=== PATIENT | male | born 2005 | race Caucasian/White ===

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

== ENCOUNTER 2024-04-27 01:31 | Emergency (ER) | payer MEDICAID, SELFPAY ==
--- NOTE | 2024-04-27 01:38 | HMH.EDGENADL ---
Discharge Plan Disposition Patient Disposition: Home, Self-Care Prescriptions Prescriptions: New amoxicillin-pot clavulanate 875-125 mg tablet 1 tab PO BID 7 Days Qty: 14 0RF Activity Restrictions/Add. Instructions Additional Instructions/Restrictions: Please see dentist as soon as possible. Please take Tylenol and ibuprofen as needed for pain. Please take antibiotics as prescribed. Clinical Impressions Clinical Impression: Acute pulpitis Print Language Print Language: Slovak Discharge ED Provider: Jose Guadalupe Dorado General Adult HPI General Chief complaint: Dental/Oral Stated complaint: constipation and tooth pain Time Seen by Provider: 04/27/24 01:38 History of Present Illness HPI narrative: 19-year-old male without significant past medical history presents for right mandibular tooth pain. He reports that he had some impacted molars extracted recently and he thinks that one of his normal teeth got cracked during the extraction process. It has been causing him pain but it got worse recently. He denies any fever or drainage. He has not been able to see a dentist about this yet. Related Data Previous Rx's ?Medication ?Instructions ?Recorded amoxicillin 875 mg-potassium 1 tab PO BID 7 days #14 tabs 04/27/24 clavulanate 125 mg tablet Allergies Allergy/AdvReac Type Severity Reaction Status Date / Time No Known Allergies Allergy Verified 04/27/24 01:42 [facility] Disclaimer: The information contained in this section may have been updated after the patient was seen, as this information can be updated by other users. Social History Smoking Status: Unknown if ever smoked alcohol intake: never current occupational status: employed Travel in the last 8 weeks: None ROS Obtained: Yes All systems reviewed & no additional complaints except as documented Physical Exam General General appearance: alert and in no apparent distress Head Head exam: atraumatic and normocephalic Eye Eye exam: Present normal appearance, PERRL and EOMI ENT ENT exam: Present normal oropharynx, normal external ear exam and other (Dental caries noted, possible chronic dental fracture of a right mandibular premolar) Neck Neck exam: Present normal inspection and full ROM Chest Chest inspection: Present normal inspection and symmetric chest wall rise; Absent tenderness Respiratory Respiratory exam: Present normal lung sounds bilaterally; Absent respiratory distress Cardiovascular Cardiovascular exam: Present regular rate and normal rhythm Abdominal Exam Abdominal exam: Present soft; Absent distention, tenderness or guarding Extremities Exam Extremities exam: Present normal inspection; Absent edema or joint swelling Back Exam Back exam: Present normal inspection; Absent tenderness Neurological Exam Neurological exam: Present alert and oriented X3; Absent motor sensory deficit Psychiatric Psychiatric exam: Present normal affect and normal mood Skin Skin exam: Present warm, dry and normal color Lymphatic Lymphatic Findings: no adenopathy Medical Decision Making Medical Records Medical records reviewed: Yes I reviewed the patient's medical records. Amaury Inquiry Pt receiving controlled substance: No Amaury was queried for this patient: No Vital Signs: 04/27/24 01:42 04/27/24 02:04 Temperature 98.2 F 98.2 F Temperature Source Oral Oral Pulse Rate 89 Pulse Rate [Right Brachial] 89 Respiratory Rate 16 16 Blood Pressure 145/95 H Blood Pressure [Right Arm] 145/95 H Blood Pressure Mean [Right Arm] 111 Blood Pressure Source Automatic Cuff Blood Pressure Source [Right Arm] Automatic Cuff Blood Pressure Position Sitting Blood Pressure Position [Right Arm] Sitting 02 Sat by Pulse Oximetry 98 Oxygen Delivery Method Room Air Room Air Lab Data Lab results reviewed: Yes I reviewed the patient's lab results. Orders (Tests/Meds): ED MEDICATIONS Discontinued Medications Generic Name Dose Route Start Last Admin Trade Name Freq PRN Reason Stop Dose Admin Amoxicillin/Clavulanate Potassium 1 each 04/27/24 01:41 04/27/24 01:49 Amoxicillin/Clavulanate Potassium 875/125mg Tablet PO 04/27/24 01:42 1 each ONCE ONE Administration Medical Decision Narrative: 19-year-old male without significant past medical history presents with right mandibular dental pain for the last couple of weeks.. History was obtained via interactive discussion with patient. On arrival, patient is [afebrile, hemodynamically stable, satting appropriately, alert, oriented x4, GCS 15], moving all extremities spontaneously. Full physical exam performed and significant for findings as document above, no evidence of abscess Differential includes but is not limited to pulpitis, dental fracture, abscess, deep space infection. Patient was given Augmentin for treatment of dental infection. He was offered a dental block but declined. He was discharged with prescription for Augmentin and instructed to follow-up with dentistry as soon as possible. Procedures Risk/Benefits of Procedure(s) Were Explained: Yes Critical Care Critical Care Time Critical Care Time: No
[2024-04-27 01:42] VITALS: BP 145/95; PULSE 89; RESP 16; TEMP 36.8; O2SAT 98; BMI 51.7
[2024-04-27] MEDS: AMOXICILLIN/CLAVULANATE POTASSIUM 875/125MG TABLET 1 EACH PO (01:49)
[2024-04-27 02:04] VITALS: BP 145/95; PULSE 89; RESP 16; TEMP 36.8; O2SAT 98
== END 2024-04-27 02:06 | disposition home or self-care (01) ==
PROVIDERS: Emergency Provider Emergency Medicine
DX: K04.01 Reversible pulpitis (principal)
CPT/HCPCS: 99283

== ENCOUNTER 2024-04-27 07:06 | Emergency (ER) | payer MEDICAID, SELFPAY ==
[2024-04-27 07:14] VITALS: BP 148/73; PULSE 64; RESP 16; TEMP 36.9; O2SAT 99; BMI 50.1
[2024-04-27] MEDS: TETRACAINE/BENZOCAINE/BUTAMBEN 56 GM SPRAY TP (07:20)
[2024-04-27] MEDS: LIDOCAINE 2% VISCOUS SOL 15ML UDC 15 ML PO (07:20)
--- NOTE | 2024-04-27 07:21 | HMH.EDGENADL ---
Discharge Plan Disposition Patient Disposition: Home, Self-Care Condition: Good Prescriptions Prescriptions: No Action albuterol sulfate 90 mcg/actuation HFA aerosol inhaler 2 puff INHALATION Q6H PRN (Reason: bronchitis) 7 Days Qty: 6.7 0RF Rx Instructions: administer with spacer Referrals Follow up/Referrals: Provider,Referral, [Primary Care Provider] - See instructions Activity Restrictions/Add. Instructions Additional Instructions/Restrictions: You were evaluated in the ER. Use the provided dental balls. Put 1 dental ball on the painful area. Leave this on for 1 hour then take it out and then take it off for at least an hour. Do not sleep or eat with these in place. Take the previously prescribed antibiotics as directed, do not skip doses, do not stop taking them early. Take Tylenol or ibuprofen if needed for pain, do not exceed the recommended doses on the bottle. Follow-up with your dentist today as scheduled. Return to the ER with new, worsening, or otherwise concerning symptoms. Clinical Impressions Clinical Impression: Dental caries, Toothache Print Language Print Language: German Discharge ED Provider: Tari Dumont General Adult HPI General Chief complaint: Dental/Oral Stated complaint: Pain on R side of mouth Time Seen by Provider: 04/27/24 07:15 Mode of Arrival: Ambulatory Source of Information: Patient Limitations: No Limitations Description of Symptoms (Recalled from ER Triage Doc. by RN): pt c/o R lower dental pain. pt states the pain is aching in nature and a 5/10. pt was here around 0100 and given an antibiotic, he denied a dental block at this time. pt reports the antibiotic has not helped at all with his pain. pt reports taking 650mg PO ASA with minimal relief. History of Present Illness HPI narrative: 19-year-old male presents to the ER for concerns of right lower dental pain. Patient states the pain is aching, approximately a 5 out of 10. He was here earlier this morning and prescribed an antibiotic but refused a dental block at that time. Patient reports the antibiotic has not helped his pain yet. He is back seeking additional pain control. Patient reports he is supposed to have an appointment with a dentist earlier today to have this tooth evaluated and pulled. Related Data Previous Rx's ?Medication ?Instructions ?Recorded albuterol sulfate 90 mcg/actuation 2 puff inhalation Q6H PRN 10/12/18 aerosol inhaler bronchitis 7 days #6.7 grams Allergies Allergy/AdvReac Type Severity Reaction Status Date / Time No Known Allergies Allergy Verified 04/27/24 07:22 [facility] Disclaimer: The information contained in this section may have been updated after the patient was seen, as this information can be updated by other users. Social History Smoking Status: Never smoker alcohol intake: never substance use type: denies use current occupational status: student Travel in the last 8 weeks: None household members: family housing: house ROS Obtained: Yes All systems reviewed & no additional complaints except as documented ENT Ears, Nose, Mouth, and Throat: Reports dental pain Physical Exam General General appearance: alert and in no apparent distress Head Head exam: atraumatic and normocephalic Eye Eye exam: Present PERRL and EOMI ENT ENT exam: Present mucous membranes moist and other (Poor dentition, multiple dental caries, right mandibular molar with obvious gingivitis at the base, no trismus, no sublingual or submandibular swelling, no abscess) Neck Neck exam: Present normal inspection and full ROM Chest Chest inspection: Present symmetric chest wall rise Respiratory Respiratory exam: Absent respiratory distress or stridor Cardiovascular Cardiovascular exam: Present regular rate and normal rhythm Abdominal Exam Abdominal exam: Present soft; Absent distention or tenderness Extremities Exam Extremities exam: Present full ROM Neurological Exam Neurological exam: Present alert and oriented X3; Absent motor sensory deficit Psychiatric Psychiatric exam: Present normal affect and normal mood Skin Skin exam: Present warm and dry Medical Decision Making Medical Records Medical records reviewed: Yes I reviewed the patient's medical records. Amaury Inquiry Pt receiving controlled substance: No Vital Signs: 04/27/24 07:14 04/27/24 07:26 Temperature 98.5 F 98.5 F Temperature Source Oral Pulse Rate 67 Pulse Rate [Left] 64 Respiratory Rate 16 16 Blood Pressure 148/73 H Blood Pressure [Right Arm] 148/73 H Blood Pressure Mean [Right Arm] 98 Blood Pressure Source [Right Arm] Automatic Cuff Blood Pressure Position [Right Arm] Sitting 02 Sat by Pulse Oximetry 99 Oxygen Delivery Method Room Air Orders (Tests/Meds): ED MEDICATIONS Discontinued Medications Generic Name Dose Route Start Last Admin Trade Name Freq PRN Reason Stop Dose Admin Lidocaine HCl 15 ml 04/27/24 07:19 Lidocaine 2% Viscous Leanne 15ml Udc PO 04/27/24 07:20 ONCE ONE Medical Decision Narrative: In summary, 19-year-old male was evaluated in the ER for dental pain. Patient was evaluated for the same a few hours prior. Exam is stable, he has findings of gingival inflammation, infection, dental caries, no abscess. I considered the possibility of Reg's angina however patient does not have any submandibular submental lingual swelling, no trismus, he is not having any difficulty tolerating secretions, no stridor. Patient reports he is supposed to have an appointment today to have his tooth pulled, they will likely be using local anesthetic and due to limitations on dosing, I do not want to preclude the patient from appropriate definitive management so I will not be performing a dental block at this time. Patient did not receive dental balls during his earlier visit to the ER so these were provided to the patient. Patient had also expected the antibiotics to already be working, so I educated him on the mechanism and effectivity of antibiotics. I encouraged him to continue taking the antibiotics. He was provided dental balls for continued home management and encouraged to keep the appointment today for the dentist for definitive management. He already has a prescription for Augmentin which I instructed him to continue using. Patient was given instructions on symptomatic management, follow up instructions, and return precautions for the emergency department. Patient indicated understanding and was discharged in stable condition. Critical Care Critical Care Time Critical Care Time: No
[2024-04-27 07:26] VITALS: BP 148/73; PULSE 67; RESP 16; TEMP 36.9
== END 2024-04-27 07:30 | disposition home or self-care (01) ==
PROVIDERS: Emergency Provider Emergency Medicine
DX: K02.9 Dental caries, unspecified (principal)
CPT/HCPCS: 99283

== ENCOUNTER 2024-08-02 10:39 | Emergency (ER) | payer MEDICAID, SELFPAY ==
[2024-08-02 10:50] VITALS: BP 113/76; PULSE 71; RESP 18; TEMP 36.7; O2SAT 99; BMI 44.9
[2024-08-02 10:58] LABS: Coronavirus 19, PCR Not Detected (NotDetected); Influenza A, PCR Not Detected (NotDetected); Influenza B, PCR Not Detected (NotDetected)
--- NOTE | 2024-08-02 11:04 | ED_ITS ---
Discharge Plan Disposition Patient Disposition: Home, Self-Care Condition: Good Prescriptions Prescriptions: New fluticasone propionate [Flonase Allergy Relief] 50 mcg/actuation spray,suspension 2 spray intranasal DAILY Qty: 16 0RF Rx Instructions: administer into each nostril daily amoxicillin 875 mg tablet 875 mg PO BID Qty: 20 0RF Referrals Follow up/Referrals: Provider,Referral, MD [Primary Care Provider] - See instructions Activity Restrictions/Add. Instructions Additional Instructions/Restrictions: Take medication as prescribed *Monitor Temp, Over the counter Motrin or Tylenol as directed/as needed Tylenol every 4 hours and Motrin every 6 hours (as long as your family doctor has told you that you can take it) for fever or pain. and straight to ER if unable to lower temp less than 101.0 after medication given Sleep elevated *Humidifier/Vaporizer *Flonase 2 sprays in each nostril daily but be aware that it may take 2-3 days before you notice improvement Follow up IMMEDIATELY for new or worsening symptoms or no Noticeable improvement over the next 48-72 hours. 911 for difficulty breathing or swallowing Clinical Impressions Clinical Impression: Otitis media Qualifiers: Otitis media type: unspecified Laterality: left Qualified Code(s): H66.92 - Otitis media, unspecified, left ear Instructions Patient Instructions: Middle Ear Infection, Amoxicillin Print Language Print Language: Romanian Discharge ED Provider: Kim Will [facility] [place] HPI General Stated complaint: headache, fever Mode of Arrival: Ambulatory Source of Information: Patient Limitations: No Limitations Time Seen by Provider: 08/02/24 11:04 Description of Symptoms (Recalled from Triage Doc. by RN): PATIENT C/O HEADACHE, FEELING HOT, DIZZINESS, AND BODY ACHES. PATIENT REQUESTING COVID TEST HEENT Symptoms (Recalled from RN notes): Yes Resp Symptoms (Recalled from RN notes): No Skin Symptoms (Recalled from RN notes): No MS Symptoms (Recalled from RN notes): No Functional Status (Recalled from RN notes): WNL History of Present Illness Provider Complaint: Patient states that he hasnt felt well for a couple of days states that he has been having headache, pain and pressure in his left ear, feeling dizzy at times, feeling hot and tired States he thinks he may have an ear infection but grandmother was worried he may have COVID again and wanted to get him tested Related Data Previous Rx's ?Medication ?Instructions ?Recorded amoxicillin 875 mg tablet 875 mg PO BID #20 tabs 08/02/24 fluticasone propionate 50 2 spray intranasal DAILY #16 grams 08/02/24 mcg/actuation nasal spray,suspension (Flonase Allergy Relief) Allergies Allergy/AdvReac Type Severity Reaction Status Date / Time No Known Allergies Allergy Verified 04/27/24 07:30 Worker's Comp Is this a Worker's Comp case?: No [facility] Disclaimer: The information contained in this section may have been updated after the patient was seen, as this information can be updated by other users. Medical History (Updated 08/02/24 @ 11:12 by Kim Will APRN) Depression Anxiety Surgical History (Updated 08/02/24 @ 11:05 by Karla Pettit RN) Hx of wisdom tooth extraction Social History (System 04/27/24 @ 07:30 by Odalis Freed) Smoking Status: Unknown if ever smoked alcohol intake: never substance use type: denies use current occupational status: employed and student Travel in the last 8 weeks: None household members: family housing: house ROS Obtained: Yes All systems reviewed & no additional complaints except as documented and Yes Systems reviewed as appropriate & no additional complaints except as documented Constitutional Constitutional: Reports system reviewed and no additional complaints, except as documented, Reports as per HPI, Reports body ache, Reports chills and Reports headache(s) ENT Ears, Nose, Mouth, and Throat: Reports system reviewed and no additional complaints, except as documented, Reports as per HPI, Reports otalgia, Reports headache(s), Reports nasal congestion and Reports nasal discharge Cardiovascular Cardiovascular: Reports system reviewed and no additional complaints, except as documented and Reports as per HPI Respiratory Respiratory: Reports system reviewed and no additional complaints, except as documented and Reports as per HPI Gastrointestinal Gastrointestingal: Reports system reviewed and no additional complaints, except as documented and as per HPI Musculoskeletal Musculoskeletal: Reports system reviewed and no additional complaints, except as documented and Reports as per HPI Neurologic Neurologic: Reports headache(s) Physical Exam General General appearance: alert and in no apparent distress ENT ENT exam: Present mucous membranes moist Expanded ENT Exam TM/Canal exam: Left TM: erythema and Bilateral TM: bulging Nose exam: Absent sinus tenderness Throat exam: Present normal inspection Chest Chest inspection: Present normal inspection and symmetric chest wall rise Respiratory Respiratory exam: Present normal lung sounds bilaterally; Absent respiratory distress or wheezes Cardiovascular Cardiovascular exam: Present regular rate, normal rhythm and normal heart sounds Abdominal Exam Abdominal exam: Present soft and normal bowel sounds; Absent distention or tenderness Neurological Exam Neurological exam: Present alert, oriented X3 and normal gait Medical Decision Making Medical Records Screening: Per USPSTF and CDC recommendations, given the prevalence of disease in our region, it is our hospital?s policy to screen for HIV and viral Hepatitis for all patients aged 18 and over and those with ongoing risk factors. Amaury Inquiry Pt receiving controlled substance: No Amaury was queried for this patient: No Vital Signs: 08/02/24 10:50 Temperature 98.1 F Temperature Source Oral Pulse Rate [Left Brachial] 71 Respiratory Rate 18 Blood Pressure [Left Arm] 113/76 Blood Pressure Mean [Left Arm] 88 Blood Pressure Source [Left Arm] Automatic Cuff Blood Pressure Position [Left Arm] Sitting 02 Sat by Pulse Oximetry 99 Oxygen Delivery Method Room Air Orders (Tests/Meds): ORDERS Category Date Time Status Rapid PCR Covid and Flu A/B Stat Lab 08/02/24 10:50 Received
[2024-08-02 11:10] VITALS: BP 113/76; PULSE 71; RESP 18; TEMP 36.7; O2SAT 99
== END 2024-08-02 11:14 | disposition home or self-care (01) ==
PROVIDERS: Emergency Provider Nurse Practitioner
DX: H66.92 Otitis media, unspecified, left ear (principal)
CPT/HCPCS: 87636; 99213; G0381

== ENCOUNTER 2024-09-07 09:46 | Emergency (ER) | payer MEDICAID, SELFPAY ==
[2024-09-07 10:05] VITALS: BP 128/67; PULSE 50; RESP 22; TEMP 36.9; O2SAT 98; BMI 47.0
--- NOTE | 2024-09-07 10:19 | XR_ITS ---
FINAL REPORT CLINICAL HISTORY: constipation and nausea COMPARISON: None FINDINGS: A single view of the abdomen was obtained. There is a nonobstructive bowel gas pattern. There is a moderate amount of retained stool. There are no abnormally dilated loops of small bowel. There are no abnormal calcifications. IMPRESSION: Nonobstructive bowel gas pattern with a moderate stool burden. Reviewed, Interpreted and Dictated by Geo Lopez III, MD Transcribed by Brittni Pedro Authenticated and [facility]
--- NOTE | 2024-09-07 10:34 | EXP.UTC ---
Discharge Plan Disposition Patient Disposition: Home, Self-Care Condition: Good Prescriptions Prescriptions: New polyethylene glycol 3350 [Miralax] 17 gram/dose powder 17 g PO DAILY PRN (Reason: constipation) Qty: 238 0RF ondansetron 4 mg tablet,disintegrating 4 mg PO Q8H PRN (Reason: nausea and vomiting) Qty: 10 0RF Referrals Follow up/Referrals: Provider,Referral, MD [Primary Care Provider] - See instructions Activity Restrictions/Add. Instructions Additional Instructions/Restrictions: Make sure to drink plently of fluids Drink the Mirlax daily at least for the next week to help with constipation and to get you cleaned out and regular Straight to ER if any worsening of vomiting, stomach pain or any life threatening symptoms Follow up with your Family Doctor if no improvement Clinical Impressions Clinical Impression: Nausea and vomiting Qualifiers: Vomiting type: unspecified Qualified Code(s): R11.2 - Nausea with vomiting, unspecified Stand Alone Forms Stand Alone Forms: Work/School Release Instructions Patient Instructions: DI for Constipation, Nausea and Vomiting-Adult Print Language Print Language: Dutch Discharge ED Provider: Kim Will [facility] General Stated complaint: vomiting and is constipated Mode of Arrival: Ambulatory Source of Information: Patient Limitations: No Limitations Time Seen by Provider: 09/07/24 10:34 Description of Symptoms (Recalled from Triage Doc. by RN): PATIENT C/O ABDOMINAL PAIN THAT STARTED LAST NIGHT APPROX 2100 AND VOMITING THAT STARTED THIS MORNING AT 0400. PATIENT ALSO STATES HE FEELS LIKE HE IS CONSTIPATED. PATIENT REPORTS LAST BOWEL MOVEMENT WAS YESTERDAY HEENT Symptoms (Recalled from RN notes): No Resp Symptoms (Recalled from RN notes): No Skin Symptoms (Recalled from RN notes): No MS Symptoms (Recalled from RN notes): No Functional Status (Recalled from RN notes): WNL History of Present Illness Provider Complaint: Patient states that he has a history of constipation, States he has been a little constipated but doesnt think the two are related, states that yesterday evening he started with crampy like pain in his abdomen and did have a bowel movement and it was normal then he started having some nausea and vomited several times States that he was up all night with N/V States that he is still having some nausea on and off States after getting to work he smelled the food and vomited several times and they made him come in Related Data Previous Rx's ?Medication ?Instructions ?Recorded ondansetron 4 mg disintegrating 4 mg PO Q8H PRN nausea and 09/07/24 tablet vomiting #10 tabs polyethylene glycol 3350 17 17 g PO DAILY PRN constipation 09/07/24 gram/dose oral powder (Miralax) #238 grams Allergies Allergy/AdvReac Type Severity Reaction Status Date / Time No Known Allergies Allergy Verified 04/27/24 07:30 Worker's Comp Is this a Worker's Comp case?: [facility] Disclaimer: The information contained in this section may have been updated after the patient was seen, as this information can be updated by other users. Medical History (Updated 09/07/24 @ 12:41 by Kim Will APRN) Depression Anxiety Surgical History (Updated 08/02/24 @ 11:05 by Karla Pettit RN) Hx of wisdom tooth extraction Social History (System 04/27/24 @ 07:30 by Odalis Freed) Smoking Status: Unknown if ever smoked alcohol intake: never substance use type: denies use current occupational status: employed and student Travel in the last 8 weeks: None household members: family housing: house ROS Obtained: Yes All systems reviewed & no additional complaints except as documented and Yes Systems reviewed as appropriate & no additional complaints except as documented Constitutional Constitutional: Reports system reviewed and no additional complaints, except as documented and Reports as per HPI ENT Ears, Nose, Mouth, and Throat: Reports system reviewed and no additional complaints, except as documented and Reports as per HPI Cardiovascular Cardiovascular: Reports system reviewed and no additional complaints, except as documented and Reports as per HPI Respiratory Respiratory: Reports system reviewed and no additional complaints, except as documented and Reports as per HPI Gastrointestinal Gastrointestingal: Reports system reviewed and no additional complaints, except as documented, as per HPI, constipation (has hx of constipation, last BM was yesterday and normal), cramping, nausea and vomiting; Denies diarrhea Physical Exam General General appearance: alert and in no apparent distress ENT ENT exam: Present normal exam, normal oropharynx, mucous membranes moist and TM's normal bilaterally Respiratory Respiratory exam: Present normal lung sounds bilaterally; Absent respiratory distress or wheezes Cardiovascular Cardiovascular exam: Present regular rate, normal rhythm and normal heart sounds Abdominal Exam Abdominal exam: Present soft and normal bowel sounds; Absent distention, tenderness, guarding or rebound Neurological Exam Neurological exam: Present alert, oriented X3 and normal gait Medical Decision Making Medical Records Screening: Per USPSTF and CDC recommendations, given the prevalence of disease in our region, it is our hospital?s policy to screen for HIV and viral Hepatitis for all patients aged 18 and over and those with ongoing risk factors. Amaury Inquiry Pt receiving controlled substance: No Amaury was queried for this patient: No Vital Signs: 09/07/24 10:05 Temperature 98.4 F Temperature Source Oral Pulse Rate [Left Brachial] 50 L Respiratory Rate 22 Blood Pressure [Left Arm] 128/67 Blood Pressure Mean [Left Arm] 87 Blood Pressure Source [Left Arm] Automatic Cuff Blood Pressure Position [Left Arm] Sitting 02 Sat by Pulse Oximetry 98 Oxygen Delivery Method Room Air Orders (Tests/Meds): ORDERS Category Date Time Status XR KUB Stat Exams 09/07/24 10:19 Taken Radiology Data #1: Image(s): KUB Image Reviewed: Yes I have reviewed radiologist's interpretation Nonobstructive bowel gas pattern with moderate stool burden Medical Decision Narrative: discussed with patient about transfer to the ED due to constipation with vomiting and he declined States that he thinks he may have a stomach bug so he wants to go home Patient was given strict return precautions to the ED no vomiting since arrival in the [facility]
[2024-09-07 12:42] VITALS: BP 128/67; PULSE 68; RESP 22; TEMP 36.9; O2SAT 98
== END 2024-09-07 12:44 | disposition home or self-care (01) ==
PROVIDERS: Emergency Provider Nurse Practitioner
DX: R11.2 Nausea with vomiting, unspecified (principal); R10.9 Unspecified abdominal pain; K59.00 Constipation, unspecified
CPT/HCPCS: 74018; 99212; G0381

== ENCOUNTER 2025-05-04 12:02 | Emergency (ER) | payer MEDICAID, SELFPAY ==
[2025-05-04 12:13] VITALS: BP 157/72; PULSE 96; RESP 17; TEMP 36.5; O2SAT 98; BMI 48.6
--- NOTE | 2025-05-04 12:13 | ED_ITS ---
<Statement entered by Buster Huertas DO - 05/06/25 15:27> Attending Attestation: I was consulted by the SUMAN, and we discussed the complexity of problems being addressed. I approved the treatment and management plan for this patient's care in the emergency department, thus performing a substantive portion of the medical decision making. I personally evaluated the patient. He described nausea and vomiting over the past couple of weeks with intermittent epigastric abdominal pain. He poorly describes temporality of his pain in relation to the nausea and vomiting. He voices concern over his grandfather's recent diagnosis of pancreatic cancer, and states he has been self medicating with marijuana for anxiety related to this. Given that his abdominal exam was totally benign without any tenderness, I felt advanced imaging was of low utility and elected to proceed with laboratory workup. I did feel his intermittent pain with nausea and vomiting could be secondary to gastritis vs. anxiety vs. cannabinoid hyperemesis syndrome. I personally tried to treat the patient with a GI cocktail and pepcid, and he declined these interventions. Was also uncomfortable with IV fluid rehydration, but he did ultimately agree to IV fluid bolus. Labs were personally interpreted and nonactionable. I advised the patient on cannabinioid hyperemesis as well as potential gastritis. Gave him recommendations for treating both at home given that he did not wish to recieve any prescriptions. We also discussed return precautions in the event he developed worse abdominal pain, intractable nausea and vomiting, or signs of dehydration. He acknowledged understanding and was amenable with plan to discharge home. Buster Huertas DO Discharge Plan Disposition Patient Disposition: Home, Self-Care Condition: Good Prescriptions Prescriptions: New ondansetron 4 mg tablet,disintegrating 4 mg PO Q6H PRN (Reason: nausea and vomiting) Qty: 10 0RF No Action polyethylene glycol 3350 [Miralax] 17 gram/dose powder 17 g PO DAILY PRN (Reason: constipation) Qty: 238 0RF ondansetron 4 mg tablet,disintegrating 4 mg PO Q8H PRN (Reason: nausea and vomiting) Qty: 10 0RF Referrals Follow up/Referrals: Provider,Referral, MD [Primary Care Provider, Medical] - See instructions Activity Restrictions/Add. Instructions Additional Instructions/Restrictions: Please return to the emergency department with any worsening signs or symptoms, please utilize all your medications as prescribed, take your antinausea medicine as needed for nausea and vomiting, recommend marijuana cessation, hot showers, follow-up with your family doctor in the upcoming days/weeks. Clinical Impressions Clinical Impression: Nausea and vomiting Qualifiers: Vomiting type: unspecified Qualified Code(s): R11.2 - Nausea with vomiting, unspecified Instructions Patient Instructions: DI for Nausea -- Adult, DI for Vomiting -- Adult Print Language Print Language: Italian Discharge ED Provider: Buster Huertas Adult HPI General Chief complaint: Abdominal Pain Stated complaint: stomach pain Time Seen by Provider: 05/04/25 12:11 Mode of Arrival: Ambulatory Source of Information: Patient Limitations: No Limitations History of Present Illness HPI narrative: 20-year-old male presents to the emergency department with a 2-week history of waxing and waning abdominal cramping, nausea and vomiting, several episodes of vomiting today which he was sent home from his job , he denies any fever chills chest pain, denies any shortness of breath, denies any abdominal pain currently, does have a history of constipation, did have multiple loose bowel movements this morning, was constipated earlier in the week, did have a bowel movement yesterday as well, patient denies any urinary type symptomatology, denies any hematuria hematochezia melena hematemesis, denies any tobacco alcohol, does admit to marijuana use earlier today and frequent marijuana use, initial triage vitals are unremarkable, patient has history of anxiety/depression, however does not take any medications for this. States he has been more anxious , lately, his grandfather got diagnosed with pancreatic cancer , which has worsened his anxiety. Please note that above description of symptoms, in this electronic medical record under categorization of recalled from ER triage doctor by RN are reflective of an initial nursing assessment, however, is not reflective of my full history and physical exam that was personally taken and clarified. Consequentially, this preceding description of symptoms, which may include the patient's categorized chief complaint in the EMR, do not reflect my personal clinical impression, and the ultimate description of history of present illness and patient stated complaints should be deferred to this section of the note. Unless stated otherwise or congruent with this section of the note, additional signs, symptoms, or incongruence should be interpreted as inaccurate with my clinical impression. Onset (ago): day(s) Related Data Previous Rx's ?Medication ?Instructions ?Recorded ondansetron 4 mg disintegrating 4 mg PO Q8H PRN nausea and 09/07/24 tablet vomiting #10 tabs polyethylene glycol 3350 17 17 g PO DAILY PRN constipa tion 09/07/24 gram/dose oral powder (Miralax) #238 grams ondansetron 4 mg disintegrating 4 mg PO Q6H PRN nausea and 05/04/25 tablet vomiting #10 tabs Allergies Allergy/AdvReac Type Severity Reaction Status Date / Time No Known Allergies Allergy Verified 04/27/24 07:30 [facility] Disclaimer: The information contained in this section may have been updated after the patient was seen, as this information can be updated by other users. Medical History (Updated 05/04/25 @ 13:46 by DOM Cleary) Depression Anxiety Surgical History (Updated 08/02/24 @ 11:05 by Karla Pettit RN) Hx of wisdom tooth extraction Social History (System 04/27/24 @ 07:30 by Odalis Freed) Smoking Status: Never smoker alcohol intake: never substance use type: denies use current occupational status: employed and student Travel in the last 8 weeks?: None household members: family housing: house Have you lived/traveled outside [place] in past 30 days?: No Contact w/someone who lives/traveled outside [place] past 30 days?: No Exposure to someone with infectious disease in past 14 days?: No Do you have a fever (greater than 100.4 F or 38 C)?: No Have you tested positive for COVID-19?: No Exposed to someone with COVID-19 in past 14 days?: No Do you have a sore throat?: No Do you have a cough?: No Do you have any weakness?: No Do you have any diarrhea?: No Are you experiencing any unusual bleeding?: No Do you have any muscle aches/pain?: No Do you have any abdominal pain?: No Are you experiencing loss of taste or smell?: No ROS Obtained: Yes All systems reviewed & no additional complaints except as documented Physical Exam General General appearance: alert and in no apparent distress Head Head exam: atraumatic and normocephalic Eye Eye exam: Present PERRL and EOMI ENT ENT exam: Present mucous membranes moist Neck Neck exam: Present normal inspection Chest Chest inspection: Present normal inspection and symmetric chest wall rise Respiratory Respiratory exam: Present normal lung sounds bilaterally; Absent respiratory distress Cardiovascular Cardiovascular exam: Present regular rate and normal rhythm Abdominal Exam Abdominal exam: Present soft; Absent tenderness, guarding, rebound or rigidity Extremities Exam Extremities exam: Present normal inspection Neurological Exam Neurological exam: Present alert and oriented X3 Psychiatric Psychiatric exam: Present normal affect Skin Skin exam: Present warm and dry Medical Decision Making Medical Records Medical records reviewed: Yes I reviewed the patient's medical records. Screening: Per USPSTF and CDC recommendations, given the prevalence of disease in our region, it is our hospital?s policy to screen for HIV and viral Hepatitis for all patients aged 18 and over and those with ongoing risk factors. Amaury Inquiry Pt receiving controlled substance: No Amaury was queried for this patient: No Vital Signs: 05/04/25 12:13 Temperature 97.7 F Temperature Source Oral Pulse Rate [Right] 96 H Respiratory Rate 17 Blood Pressure [Left Arm] 157/72 H Blood Pressure Mean [Left Arm] 100 Blood Pressure Source [Left Arm] Automatic Cuff 02 Sat by Pulse Oximetry 98 Oxygen Delivery Method Room Air Lab Data Lab results reviewed: Yes I reviewed the patient's lab results. Lab Results 05/04/25 12:06: Urine Color Yellow, Urine Appearance Clear, Urine pH 8.5, Ur Specific [place] 1.020, Urine Protein Negative, Urine Glucose (UA) Negative, Urine Ketones Negative, Urine Blood Negative, Urine Nitrate Negative, Urine Bilirubin Negative, Urine Urobilinogen 1.0, Ur Leukocyte Esterase Negative, Urine RBC None, Urine WBC Occasional, Ur Squamous Epith Cells Occasional, Amorphous Sediment 3+, Urine Bacteria 2+, Urine Opiates Screen Negative, Urine Methadone Screen Negative, Ur Barbituates Screen Negative, Ur Phencyclidine Scrn Negative, Ur Amphetamines Screen Negative, U Benzodiazepines Scrn Negative, Urine Cocaine Screen Negative, U Marijuana (THC) Screen Positive H 05/04/25 12:40: WBC 6.6, RBC 5.28, Hgb 14.5, Hct 43.2, MCV 81.8, MCH 27.5, MCHC 33.6, RDW 12.1, Plt Count 260, MPV 10.2, Neut % (Auto) 57.0, Lymph % (Auto) 32.3, Ness % (Auto) 7.8, Eos % (Auto) 2.1, Baso % (Auto) 0.6, Neut # (Auto) 3.7, Lymph # (Auto) 2.1, Ness # (Auto) 0.5, Eos # (Auto) 0.1, Baso # (Auto) 0.0, Sodium 137, Potassium 3.9, Chloride 105, Carbon Dioxide 26, Anion Gap 9.9, BUN 7 L, Creatinine 0.70, Estimated Creat Clear 162, Estimated GFR 142, Est GFR ( Amer) 172, Glucose 95, Lactate 1.1, Calcium 9.2, Total Bilirubin 0.8, AST 38, ALT 61, Alkaline Phosphatase 77, Total Protein 7.2, Albumin 4.5, Globulin 2.7, Albumin/Globulin Ratio 1.7, Lipase 64 05/04/25 12:40 05/04/25 12:40 Orders (Tests/Meds): ED MEDICATIONS Discontinued Medications Generic Name Dose Route Start Last Admin Trade Name Freq PRN Reason Stop Dose Admin Lactated Ringer's 1,000 mls @ 999 mls/hr 05/04/25 12:33 05/04/25 12:44 Lactated Ringer's 1000 Ml Bag IV 05/04/25 13:33 999 mls/hr .Q1H1M ONE Administration Ondansetron HCl 4 mg 05/04/25 12:31 05/04/25 12:44 Ondansetron 4mg/2ml Vial IV 05/04/25 12:32 4 mg ONCE ONE Administration ORDERS Category Date Time Status Complete Blood Count Auto Diff Stat Lab 05/04/25 12:40 Completed Comprehensive Metabolic Panel Stat Lab 05/04/25 12:40 Completed Drug Screen,Urine Stat Lab 05/04/25 12:06 Completed Lactic Acid Stat Lab 05/04/25 12:40 Completed Lipase Stat Lab 05/04/25 12:40 Completed Urinalysis and Microscopic Stat Lab 05/04/25 12:06 Completed Urine Culture Stat Micro 05/04/25 12:06 Received Medical Decision Narrative: 20-year-old male presents the emergency department for crampy abdominal pain nausea and vomiting that have been waxing and waning for the last 2 weeks, differential diagnosis include but not limited to, electrolyte disturbance, constipation, gastroenteritis, gastritis, cannabinoid hyperemesis syndrome, anxiety reaction. I discussed this patient's case with attending physician he saw and examined the patient as well. Will obtain basic laboratory studies, UDS, lactic acid, lipase level, UA, will give 1 L LR IV, 4 mg Zofran for nausea and vomiting. UA Is unremarkable CBC unremarkable UDS is notable for marijuana otherwise unremarkable CMP unremarkable No lactic acidosis Lipase in normal limits. Reexamination of the patient, patient has remained hemodynamically stable without his time in the emergency department, no further episodes of nausea or vomiting, abdominal cramping of subsided, I do believe this is some degree of hyperemesis cannabinoid syndrome versus anxiety type reaction, patient's abdominal exam remains completely benign, discussed all results with the patient at bedside, patient agreed with current treatment plan/discharge plan, patient was given strict ED return precautions will follow-up with PCP, will prescribe the patient 4 mg p.o. sublingual Zofran as needed for nausea and vomiting. Patient voiced understanding. Critical Care Critical Care Time Critical Care Time: No
[2025-05-04 12:29] LABS: Microscopic, Urine URINE MICROSCOPIC (MICROSCOPIC)
[2025-05-04 12:31] LABS: Bilirubin,Urine Negative (Negative); Color,Urine YELLOW (Yellow); Glucose,Urine (UA) Negative (Negative); Ketones,Urine Negative (Negative); Leukocyte Esterase,Urine Negative (Negative); PH,Urine 8.5 (5.0-8.5); Protein,Urine Negative (Negative); Specific Gravity, Urine 1.020 (1.005-1.030); Urobilinogen,Urine 1.0 EU/dl (0.2)
[2025-05-04 12:43] LABS: Amorphous Sediment,Urine 3+ /lpf; Bacteria,Urine 2+ /lpf; Squamous Epithelial Cell,Urine Occasional #/hpf (0-5); WBC,Urine Occasional #/hpf (0-3)
[2025-05-04] MEDS: ONDANSETRON 4MG/2ML VIAL 4 MG IV (12:44)
[2025-05-04] MEDS: LACTATED RINGERS 1000ML 1,000 ML 999 ML IV (12:44)
[2025-05-04 12:46] LABS: Amphetamine/Metha Screen,Urine Negative ng/ml (<1000)
[2025-05-04 12:47] LABS: Barbiturates Screen,Urine Negative ng/ml (<200); Benzodiazepines Screen,Urine Negative ng/ml (<200)
[2025-05-04 12:48] LABS: Opiate Screen,Urine Negative ng/ml (<300); Phencyclidine Screen,Urine Negative ng/ml (<25)
[2025-05-04 12:48] LABS: Hematocrit 43.2 % (42.0-52.0); Hemoglobin 14.5 g/dL (14.1-18.0); Immature Granulocytes % 0.2 %; Mean Corpuscular HGB Conc 33.6 g/dL (31.8-35.4); Mean Corpuscular Hemoglobin 27.5 pg (27.0-31.2); Mean Corpuscular Volume 81.8 fl (80-94); Nucleated Red Blood Cells % 0 %; Platelet Count 260 K/mm3 (142-424); Red Blood Count 5.28 M/mm3 (4.60-6.20); Red Cell Distribution Width-SD 36.3 fL; White Blood Count 6.6 K/mm3 (4.8-10.8)
[2025-05-04 12:53] LABS: Methadone Screen,Urine Negative ng/ml (<300)
[2025-05-04 12:57] LABS: Albumin Level 4.5 g/dl (3.5-5.0); Chloride 105 mmol/L (98-107); Potassium 3.9 mmoL/L (3.5-5.1); Sodium 137 mmol/L (136-145)
[2025-05-04 13:00] LABS: Alanine Aminotransferase 61 U/L (12-78); Albumin/Globulin Ratio 1.7 (1.1-1.8); Alkaline Phosphatase 77 U/L (38-126); Anion Gap 9.9 mEq/L (5-15); Aspartate Amino Transferase 38 U/L (17-59); Bilirubin,Total 0.8 mg/dl (0.2-1.3); Blood Urea Nitrogen 7 mg/dl (9-20); Carbon Dioxide 26 mmol/L (22.0-30.0); Creatinine Clearance Estimated 162 mL/min (50-200); Creatinine,Serum 0.70 mg/dl (0.66-1.25); Estimated Glomerular Filt Rate 142 ml/min (>60); GFR (African American) 172 ML/MIN (>60); Globulin 2.7 g/dL (1.3-3.2); Total Protein,Serum 7.2 g/dl (6.3-8.2)
[2025-05-04 13:01] LABS: Calcium 9.2 mg/dl (8.4-10.2); Glucose 95 mg/dl (74-100)
[2025-05-04 13:35] LABS: Lipase 64 U/L (23-300)
[2025-05-04 13:56] VITALS: BP 136/70; PULSE 75; RESP 18; TEMP 36.7; O2SAT 98
== END 2025-05-04 13:56 | disposition home or self-care (01) ==
PROVIDERS: Physician Assistant; Emergency Provider Student in an Organized Health Care Education/Training Program
DX: R10.9 Unspecified abdominal pain (principal); R11.2 Nausea with vomiting, unspecified; F41.1 Generalized anxiety disorder; F12.90 Cannabis use, unspecified, uncomplicated
CPT/HCPCS: 80053; 80307; 81001; 83605; 83690; 85025; 87086; 96361; 96374; 99284; J2405; J7120

== ENCOUNTER 2025-06-13 13:37 | Emergency (ER) | payer MEDICAID, SELFPAY ==
[2025-06-13] VITALS (7 sets, daily range): BP systolic 112–141; BP diastolic 55–82; PULSE 88–107; RESP 18; TEMP 37.1–39.3; O2SAT 97–100; BMI 45.6
--- NOTE | 2025-06-13 14:54 | CT_ITS ---
FINAL REPORT TECHNIQUE: IV contrast enhanced exam This study was performed with techniques to keep radiation doses as low as reasonably achievable, (ALARA). Individualized dose reduction techniques using automated exposure control or adjustment of mA and/or kV according to the patient''s size were employed. CLINICAL HISTORY: right flank pain COMPARISON: None FINDINGS: Abdomen: Lung bases are clear. The gallbladder is unremarkable. Liver demonstrates fatty infiltration. The spleen, pancreas and adrenal glands are unremarkable. Kidneys show no mass or obstruction. No obvious renal stones are identified. There is a left renal upper pole cyst present, measuring 13 mm in diameter. No bowel obstruction or fluid collection is seen. Pelvis: The appendix is not visualized, but no secondary signs of inflammatory change are noted. Pelvic bowel loops are unremarkable. The prostate and bladder are unremarkable in appearance. No fluid collection or adenopathy is seen. IMPRESSION: No evidence of renal stones or ureteral obstruction is seen. Fatty infiltration of the liver. Reviewed, Interpreted and Dictated by Sonido Lawrence MD Transcribed by Tessa Bahena Authenticated and [facility]
[2025-06-13 15:05] LABS: Hematocrit 46.3 % (42.0-52.0); Hemoglobin 15.4 g/dL (14.1-18.0); Immature Granulocytes % 0.6 %; Mean Corpuscular HGB Conc 33.3 g/dL (31.8-35.4); Mean Corpuscular Hemoglobin 26.7 pg (27.0-31.2); Mean Corpuscular Volume 80.2 fl (80-94); Nucleated Red Blood Cells % 0 %; Platelet Count 201 K/mm3 (142-424); Red Blood Count 5.77 M/mm3 (4.60-6.20); Red Cell Distribution Width-SD 34.6 fL; White Blood Count 8.9 K/mm3 (4.8-10.8)
[2025-06-13 15:06] LABS: Microscopic, Urine URINE MICROSCOPIC (MICROSCOPIC)
[2025-06-13 15:07] LABS: Bilirubin,Urine Negative (Negative); Color,Urine YELLOW (Yellow); Glucose,Urine (UA) Negative (Negative); Ketones,Urine 2+ (Negative); Leukocyte Esterase,Urine TRACE (Negative); PH,Urine 6.0 (5.0-8.5); Protein,Urine Negative (Negative); Specific Gravity, Urine <= 1.005 (1.005-1.030); Urobilinogen,Urine 1.0 EU/dl (0.2)
[2025-06-13] MEDS: IOPAMIDOL-370 (76%);100ML BOTTLE 80 ML IV (15:08)
[2025-06-13] MEDS: SODIUM CHLORIDE 0.9% 10ML SYR (RAD ONLY) 10 ML IV (15:08)
[2025-06-13 15:09] LABS: Chloride 98 mmol/L (98-107); Potassium 3.8 mmoL/L (3.5-5.1); Sodium 132 mmol/L (136-145)
[2025-06-13 15:11] LABS: Alanine Aminotransferase 43 U/L (12-78); Aspartate Amino Transferase 41 U/L (17-59); Blood Urea Nitrogen 11 mg/dl (9-20); Carbon Dioxide 24 mmol/L (22.0-30.0); Creatinine Clearance Estimated 117 mL/min (50-200); Creatinine,Serum 1.00 mg/dl (0.66-1.25); Estimated Glomerular Filt Rate 94 ml/min (>60); GFR (African American) 114 ML/MIN (>60)
[2025-06-13 15:12] LABS: Alkaline Phosphatase 73 U/L (38-126); Bilirubin,Total 1.6 mg/dl (0.2-1.3); Calcium 9.4 mg/dl (8.4-10.2); Glucose 115 mg/dl (74-100); Lipase 48 U/L (23-300); Magnesium 1.5 mg/dl (1.6-2.3); Total Protein,Serum 7.8 g/dl (6.3-8.2)
[2025-06-13 15:15] LABS: Anion Gap 13.8 mEq/L (5-15)
[2025-06-13 15:23] LABS: Bacteria,Urine Trace /lpf; Squamous Epithelial Cell,Urine Occasional #/hpf (0-5)
[2025-06-13] MEDS: ACETAMINOPHEN 1,000MG/100ML VIAL 1000 MG IV (15:41)
[2025-06-13] MEDS: 0.9 % SODIUM CHLORIDE 1000ML 2,120 ML 1060 ML IV (15:41)
--- NOTE | 2025-06-13 15:48 | ED_ITS ---
<Statement entered by Nikolay Shi MD - 06/13/25 20:49> I was consulted by the SUMAN, and we discussed the complexity of the problems being addressed. I approve the treatment and management plan for this patient's care in the emergency department, thus performing a substantive portion of the medical decision making. Nikolay Shi MD Discharge Plan Disposition Patient Disposition: Home, Self-Care Prescriptions Prescriptions: New sulfamethoxazole-trimethoprim [Bactrim DS] 800-160 mg tablet 1 tab PO BID 7 Days Qty: 14 0RF No Action polyethylene glycol 3350 [Miralax] 17 gram/dose powder 17 g PO DAILY PRN (Reason: constipation) Qty: 238 0RF ondansetron 4 mg tablet,disintegrating 4 mg PO Q8H PRN (Reason: nausea and vomiting) Qty: 10 0RF ondansetron 4 mg tablet,disintegrating 4 mg PO Q6H PRN (Reason: nausea and vomiting) Qty: 10 0RF Referrals Follow up/Referrals: Provider,Referral, [Primary Care Provider, Medical] - See instructions Activity Restrictions/Add. Instructions Additional Instructions/Restrictions: Increase fluids and rest. Take meds as directed. Please continue to take Tylenol or ibuprofen for pain if needed. Clinical Impressions Clinical Impression: Urinary tract infection, Acute flank pain Stand Alone Forms Stand Alone Forms: Work/School Release Instructions Patient Instructions: DI for Urinary Tract Infection (UTI), DI for Flank Pain Print Language Print Language: Bulgarian Discharge ED Provider: Nikolay Shi General Adult HPI General Chief complaint: Urogenital-Male Stated complaint: Pain in Lower Back/Burning during urination Time Seen by Provider: 06/13/25 14:33 Mode of Arrival: Ambulatory Source of Information: Patient Description of Symptoms (Recalled from ER Triage Doc. by RN): PT REPORTS LEFT LOWER ABDOMINAL PAIN, BURNING WITH URINATION, FREQUENCY, CHILLS AND HEADACHE X 2 DAYS. History of Present Illness HPI narrative: 20-year-old male who presents to the ED today for complaint of right flank pain. Patient states he had some burning with urination and frequency patient on arrival to the ED had a temp of 102.7. He denied headache but told nurse that he did have a headache. Upon exam did not have any abdominal pain or tenderness. Related Data Previous Rx's ?Medication ?Instructions ?Recorded ondansetron 4 mg disintegrating 4 mg PO Q8H PRN nausea and 09/07/24 tablet vomiting #10 tabs polyethylene glycol 3350 17 17 g PO DAILY PRN constipa tion 09/07/24 gram/dose oral powder (Miralax) #238 grams ondansetron 4 mg disintegrating 4 mg PO Q6H PRN nausea and 05/04/25 tablet vomiting #10 tabs sulfamethoxazole 800 1 tab PO BID 7 days #14 tabs 06/13/25 mg-trimethoprim 160 mg tablet (Bactrim DS) Allergies Allergy/AdvReac Type Severity Reaction Status Date / Time No Known Allergies Allergy Verified 04/27/24 07:30 PFS PFS Disclaimer: The information contained in this section may have been updated after the patient was seen, as this information can be updated by other users. Medical History (Updated 06/13/25 @ 17:41 by Phuong Donovan (ED), DOCUMENTATION ANALYST) Depression Anxiety Surgical History (Updated 08/02/24 @ 11:05 by Karla Pettit RN) Hx of wisdom tooth extraction Social History (System 04/27/24 @ 07:30 by Odalis Freed) Smoking Status: Current some day smoker alcohol intake: never substance use type: denies use current occupational status: employed and student Travel in the last 8 weeks?: None household members: family housing: house Have you lived/traveled outside [place] in past 30 days?: No Contact w/someone who lives/traveled outside [place] past 30 days?: No Exposure to someone with infectious disease in past 14 days?: No Do you have a fever (greater than 100.4 F or 38 C)?: No Have you tested positive for COVID-19?: No Exposed to someone with COVID-19 in past 14 days?: No Do you have a sore throat?: No Do you have a cough?: No Do you have any weakness?: No Do you have any diarrhea?: No Are you experiencing any unusual bleeding?: No Do you have any muscle aches/pain?: No Do you have any abdominal pain?: No Are you experiencing loss of taste or smell?: No ROS Obtained: Yes Systems reviewed as appropriate & no additional complaints except as documented Constitutional Constitutional: Reports as per HPI Physical Exam General General appearance: alert and in no apparent distress Head Head exam: normocephalic Eye Eye exam: Present PERRL and EOMI ENT ENT exam: Present normal oropharynx and mucous membranes moist Neck Neck exam: Present full ROM and trachea midline Respiratory Respiratory exam: Present normal lung sounds bilaterally Cardiovascular Cardiovascular exam: Present normal rhythm, tachycardia, normal heart sounds, +S1 and +S2 Abdominal Exam Abdominal exam: Present soft and normal bowel sounds Extremities Exam Extremities exam: Present full ROM and normal capillary refill Back Exam Back exam: Present CVA tenderness (R) Neurological Exam Neurological exam: Present alert and oriented X3 Skin Skin exam: Present warm, dry and intact Medical Decision Making Medical Records Screening: Per USPSTF and CDC recommendations, given the prevalence of disease in our region, it is our hospital?s policy to screen for HIV and viral Hepatitis for all patients aged 18 and over and those with ongoing risk factors. Amaury Inquiry Pt receiving controlled substance: No Amaury was queried for this patient: No Vital Signs: 06/13/25 14:20 06/13/25 15:52 06/13/25 16:01 Temperature 102.7 F H Temperature Source Oral Pulse Rate 107 H 103 H Pulse Rate [Radial] 105 H Respiratory Rate 18 Blood Pressure 129/70 112/66 Blood Pressure [Left Arm] 116/82 Blood Pressure Mean Blood Pressure Mean [Left Arm] 93 Blood Pressure Source Blood Pressure Source [Left Arm] Automatic Cuff Blood Pressure Position Blood Pressure Position [Left Arm] Sitting 02 Sat by Pulse Oximetry 100 99 97 Oxygen Delivery Method Room Air 06/13/25 16:30 06/13/25 17:01 06/13/25 17:47 Temperature 98.8 F Temperature Source Oral Pulse Rate 104 H 92 H 88 Pulse Rate [Radial] Respiratory Rate 18 Blood Pressure 135/77 141/55 H 137/73 Blood Pressure [Left Arm] Blood Pressure Mean 94 94 Blood Pressure Mean [Left Arm] Blood Pressure Source Automatic Cuff Blood Pressure Source [Left Arm] Blood Pressure Position Sitting Blood Pressure Position [Left Arm] 02 Sat by Pulse Oximetry 97 98 Oxygen Delivery Method Room Air 06/13/25 17:49 Temperature Temperature Source Pulse Rate 92 H Pulse Rate [Radial] Respiratory Rate Blood Pressure 137/73 Blood Pressure [Left Arm] Blood Pressure Mean 94 Blood Pressure Mean [Left Arm] Blood Pressure Source Blood Pressure Source [Left Arm] Blood Pressure Position Blood Pressure Position [Left Arm] 02 Sat by Pulse Oximetry 98 Oxygen Delivery Method Lab Data Lab Results 06/13/25 14:28: Urine Color Yellow, Urine Appearance Clear, Urine pH 6.0, Ur Specific [place] <= 1.005, Urine Protein Negative, Urine Glucose (UA) Negative, Urine Ketones 2+, Urine Blood Negative, Urine Nitrate Negative, Urine Bilirubin Negative, Urine Urobilinogen 1.0, Ur Leukocyte Esterase Trace, Urine RBC None, Urine WBC 3-5, Ur Squamous Epith Cells Occasional, Urine Bacteria Trace 06/13/25 14:50: WBC 8.9, RBC 5.77, Hgb 15.4, Hct 46.3, MCV 80.2, MCH 26.7 L, MCHC 33.3, RDW 12.0, Plt Count 201, MPV 10.0, Neut % (Auto) 90.1 H, Lymph % (Auto) 4.6 L, Hand % (Auto) 4.4, Eos % (Auto) 0.0 L, Baso % (Auto) 0.3, Neut # (Auto) 8.0 H, Lymph # (Auto) 0.4 L, Hand # (Auto) 0.4, Eos # (Auto) 0.0, Baso # (Auto) 0.0, Total Counted 100, Neutrophils % (Manual) 90 H, Band Neutrophils % 1.0, Lymphocytes % (Manual) 5 L, Monocytes % (Manual) 3, Basophils % (Manual) 1.0, Platelet Estimate Normal, RBC Morphology Normal, Sodium 132 L, Potassium 3.8, Chloride 98, Carbon Dioxide 24, Anion Gap 13.8, BUN 11, Creatinine 1.00, Estimated Creat Clear 117, Estimated GFR 94, Est GFR ( Amer) 114, Glucose 115 H, Calcium 9.4, Magnesium 1.5 L, Total Bilirubin 1.6 H, AST 41, ALT 43, Alkaline Phosphatase 73, Total Protein 7.8, Albumin 4.6, Globulin 3.2, Albumin/Globulin Ratio 1.4, Lipase 48, HCV Ab ILENE w/Rflx PCR Qn Negative, HIV Ag/Ab Combo Qual Negative 06/13/25 14:50 06/13/25 14:50 Orders (Tests/Meds): ED MEDICATIONS Discontinued Medications Generic Name Dose Route Start Last Admin Trade Name Freq PRN Reason Stop Dose Admin Acetaminophen 1,000 mg 06/13/25 14:59 06/13/25 15:41 Acetaminophen 1,000mg/100ml Vial IV 06/13/25 15:00 1,000 mg ONCE ONE Administration Sodium Chloride 1,000 mls @ 999 mls/hr 06/13/25 14:55 Sod Chlor 0.9% 1000ml Bag IV 06/13/25 15:55 .Q1H1M ONE Sodium Chloride 2,120 mls @ 1,060 mls/hr 06/13/25 15:00 06/13/25 18:15 Sod Chlor 0.9% 1000ml Bag 30 ml/kg infuse over 2 hr (2120 ml) 06/13/25 16:59 Infused IV Infusion .Q2H ONE Iopamidol 80 ml 06/13/25 15:06 06/13/25 15:08 Iopamidol-370 (76%);100ml Bottle IV 06/13/25 15:07 80 ml ONCE ONE Administration Sodium Chloride 10 ml 06/13/25 15:06 06/13/25 15:08 Sodium Chloride 0.9% 10ml Syr (Rad Only) IV 07/13/25 15:05 10 ml NEEDED PRN Administration Maintain IV Site ORDERS Category Date Time Status CT abdomen pelvis w con Stat Cat Scan 06/13/25 14:54 Completed CBC [Complete Blood Count Auto Diff] Stat Lab 06/13/25 14:50 Completed Comprehensive Metabolic Panel Stat Lab 06/13/25 14:50 Completed HIV Combo Stat Lab 06/13/25 14:50 Completed Hepatitis C Ab Qual. W/ RFX Stat Lab 06/13/25 14:50 Completed Lipase Stat Lab 06/13/25 14:50 Completed Magnesium Stat Lab 06/13/25 14:50 Completed Urinalysis and Microscopic Stat Lab 06/13/25 14:28 Completed Urine Chlam/Gono/Trich ([facility]) Stat Lab 06/13/25 14:28 Received Blood Culture Stat Micro 06/13/25 15:51 Received Medical Decision Narrative: patient is a 20-year-old male presenting to the emergency department for evaluation of right flank pain, frequency and urgency. Patient is hemodynamically stable and nontoxic-appearing upon arrival, afebrile. Differential diagnosis includes kidney stone, UTI, among others. Workup will be conducted with hematologic labs, specific imaging. Initial inventions include crystalloid bolus, analgesics. Retook temperature and it was 98. Patient just received his full dose of Tylenol and he has improved with symptoms. His white count was normal. He had trace amount of leukocytes in his urine as well as trace bacteria. With his symptoms I will treat with antibiotics. He did present with fever of 102.7 and right flank pain. I do want him to continue with IV fluids and that we will discharge with symptomatic treatment. I did discuss with Dr Rowan. We did order gc/chlam. Critical Care Critical Care Time Critical Care Time: No
[2025-06-13 16:07] LABS: Albumin Level 4.6 g/dl (3.5-5.0); Albumin/Globulin Ratio 1.4 (1.1-1.8); Globulin 3.2 g/dL (1.3-3.2)
[2025-06-13 16:17] LABS: RBC Morphology Normal; Total Cells Counted 100
[2025-06-13 18:39] LABS: Hepatitis C Ab Qual. W/ RFX NEGATIVE (Negative)
== END 2025-06-13 18:16 | disposition home or self-care (01) ==
PROVIDERS: Nurse Practitioner; Student in an Organized Health Care Education/Training Program; Emergency Provider Student in an Organized Health Care Education/Training Program
DX: R10.32 Left lower quadrant pain (principal); N39.0 Urinary tract infection, site not specified; R50.9 Fever, unspecified; R30.0 Dysuria
CPT/HCPCS: 74177; 80053; 81001; 83690; 83735; 85007; 85025; 86803; 87040; 87389; 87491; 87591; 87661; 96361; 96374; 99285; J0131; J7030; Q9967